=== PATIENT | male | born 1950 | race Caucasian/White ===

== ENCOUNTER 2022-06-20 16:07 | Emergency (ER) | payer OTHER ==
[~2022-06-20] VITALS: Ht 172.7 cm; Wt 99.8 kg
[~2022-06-20 16:07] MED LIST: ATOR40TA PO; Aspir 8181 MG PO; BUPR75 PO; CARV25 PO; CYCL10 PO; ERGO400 PO; FINA5 PO; GLIP10; JARDIANCE10 MG PO; LASIX20 M2 PO; LOSA25 PO; METF500; OMEP20ER; PRED20 PO; Primidone50 MG PO; TAMS.4ER PO; TRADJENTA5 MG PO; TRAM50 PO; XYZAL5 MG PO
[2022-06-20 17:26] LABS: BASOPHILS ABSOLUTE AUTO 0.04 K/mm3 (0.00-0.23); BASOPHILS PERCENT AUTO 1 % (0-2); EOSINOPHILS PERCENT AUTO 6 % (0-6); Hematocrit 42.7 % (37.0-53.0); Hemoglobin 14.3 g/dL (13.5-17.5); IMMATURE GRAN ABSOLUTE AUTO 0.01 K/mm3 (0.00-0.10); IMMATURE GRAN PERCENT AUTO 0 % (0-1); LYMPHOCYTES ABSOLUTE AUTO 1.55 K/mm3 (0.84-5.20); LYMPHOCYTES PERCENT AUTO 22 % (21-46); MONOCYTES ABSOLUTE AUTO 0.69 K/mm3 (0.16-1.47); MONOCYTES PERCENT AUTO 10 % (4-13); Mean Corpuscular HGB 27.8 pg (26.0-34.0); Mean Corpuscular HGB Conc 33.5 g/dL (31.5-36.5); Mean Corpuscular Volume 83 fL (80-100); Mean Platelet Volume 10.2 fL (9.1-12.4); NEUTROPHILS ABSOLUTE AUTO 4.31 K/mm3 (1.96-9.15); NEUTROPHILS PERCENT AUTO 62 % (41-73); Platelet Count 226 K/mm3 (150-400); RDW Coefficient Variation 13.8 % (11.7-14.2); Red Blood Cell Count 5.14 M/mm3 (4.30-5.90)
[2022-06-20 17:52] LABS: Albumin, Blood 3.6 g/dL (3.4-5.0); Albumin/Globulin Ratio 1.1 (0.8-1.8); Bilirubin, Total 0.4 mg/dL (0.1-1.0); Bun/Creatinine Ratio 23.4 (12.0-20.0); Calcium, Blood 9.3 mg/dL (8.5-10.1); Creatinine, Blood 1.07 mg/dL (0.60-1.20); Globulin, Blood 3.4 g/dL (2.2-4.0); Potassium, Blood 5.3 mmol/L (3.5-5.5)
[2022-06-20] MEDS ORDERED: FURO20 PO (20:00)
[2022-06-20] MEDS ORDERED: BACLOFEN5 M1 PO (20:01)
[2022-06-20] MEDS ORDERED: TRADJENTA5 MG PO (20:02)
[2022-06-20] MEDS ORDERED: PIOG15 PO (20:02)
[2022-06-20] MEDS ORDERED: MONT10T PO (20:02)
[2022-06-20] MEDS ORDERED: INSULANI (20:03)
== END 2022-06-21 00:17 | disposition home or self-care (01) ==
LOC: ER 16:07
PROVIDERS: Physician Assistant
DX: J44.1 Chronic obstructive pulmonary disease with (acute) exacerbation (principal); I50.9 Heart failure, unspecified; Z88.0 Allergy status to penicillin; Z79.899 Other long term (current) drug therapy
CPT/HCPCS: 36415; 71046; 80053; 82947; 83880; 84484; 85025; 93005; 93010; 94640; 94664; 96374; 99284-25; J1815; J1940; J7512

== ENCOUNTER 2022-09-20 06:37 | Emergency (ER) | payer OTHER ==
[~2022-09-20] VITALS: Ht 172.7 cm; Wt 99.8 kg
[~2022-09-20 06:37] MED LIST changes: +BACLOFEN5 M1 PO; +FURO20 PO; +INSULANI; +MONT10T PO; +PIOG15 PO
[2022-09-20 07:23] LABS: BASOPHILS ABSOLUTE AUTO 0.05 K/mm3 (0.00-0.23); BASOPHILS PERCENT AUTO 1 % (0-2); EOSINOPHILS ABSOLUTE AUTO 0.42 K/mm3 (0.00-0.68); EOSINOPHILS PERCENT AUTO 5 % (0-6); Hematocrit 39.3 % (37.0-53.0); Hemoglobin 13.1 g/dL (13.5-17.5); IMMATURE GRAN ABSOLUTE AUTO 0.03 K/mm3 (0.00-0.10); IMMATURE GRAN PERCENT AUTO 0 % (0-1); LYMPHOCYTES ABSOLUTE AUTO 1.21 K/mm3 (0.84-5.20); LYMPHOCYTES PERCENT AUTO 14 % (21-46); MONOCYTES ABSOLUTE AUTO 0.82 K/mm3 (0.16-1.47); MONOCYTES PERCENT AUTO 9 % (4-13); Mean Corpuscular HGB 27.3 pg (26.0-34.0); Mean Corpuscular HGB Conc 33.3 g/dL (31.5-36.5); Mean Corpuscular Volume 82 fL (80-100); Mean Platelet Volume 11.1 fL (9.1-12.4); NEUTROPHILS ABSOLUTE AUTO 6.29 K/mm3 (1.96-9.15); NEUTROPHILS PERCENT AUTO 71 % (41-73); Platelet Count 211 K/mm3 (150-400); RDW Coefficient Variation 13.7 % (11.7-14.2); RDW Standard Deviation 40.8 fL (35.1-46.3); Red Blood Cell Count 4.79 M/mm3 (4.30-5.90); White Blood Cell Count 8.82 K/mm3 (4.00-11.30)
[2022-09-20 08:10] LABS: Albumin, Blood 3.3 g/dL (3.4-5.0); Albumin/Globulin Ratio 0.9 (0.8-1.8); Bilirubin, Total 0.9 mg/dL (0.1-1.0); Bun/Creatinine Ratio 22.4 (12.0-20.0); Creatinine, Blood 1.25 mg/dL (0.60-1.20); Globulin, Blood 3.7 g/dL (2.2-4.0); Potassium, Blood 3.9 mmol/L (3.5-5.5)
[2022-09-20] MEDS ORDERED: AZIT250 PO (10:37)
[2022-09-20] MEDS ORDERED: ALBU90OI INH (10:37)
[2022-09-20] MEDS ORDERED: PRED20 PO (10:37)
== END 2022-09-20 10:48 | disposition home or self-care (01) ==
LOC: ER 06:37
PROVIDERS: Student in an Organized Health Care Education/Training Program
DX: J44.1 Chronic obstructive pulmonary disease with (acute) exacerbation (principal); I50.9 Heart failure, unspecified; E11.9 Type 2 diabetes mellitus without complications; Z88.0 Allergy status to penicillin; Z79.899 Other long term (current) drug therapy; Z79.82 Long term (current) use of aspirin; Z79.84 Long term (current) use of oral hypoglycemic drugs; Z87.891 Personal history of nicotine dependence
CPT/HCPCS: 36415; 71046; 80053; 83735; 83880; 84484; 85025; 93005; 93010; 94640; 94664; A9270; J1940

== ENCOUNTER 2023-02-20 05:35 | Day surgery (SDC) | payer OTHER ==
[~2023-02-20] VITALS: Ht 172.7 cm; Wt 97.0 kg
[2023-02-20] VITALS (11 sets, daily range): BP systolic 127–145; BP diastolic 65–83
[~2023-02-20 05:35] MED LIST changes: +ALBU90OI INH; +AZIT250 PO; +BUME2 PO; +LEVE500 PO; +METF500C PO; -OMEP20ER; +OMEP20ER PO; +OZEMPIC0.25 MG/0. SQ; +TIOT18 INH
[2023-02-20] MEDS ORDERED: NOVOLOG FL100 UNIT/3 SQ (07:08)
[2023-02-20 07:13] LABS: BASOPHILS ABSOLUTE AUTO 0.03 K/mm3 (0.00-0.23); BASOPHILS PERCENT AUTO 0 % (0-2); EOSINOPHILS ABSOLUTE AUTO 0.54 K/mm3 (0.00-0.68); EOSINOPHILS PERCENT AUTO 7 % (0-6); Hematocrit 36.2 % (37.0-53.0); Hemoglobin 11.9 g/dL (13.5-17.5); IMMATURE GRAN ABSOLUTE AUTO 0.02 K/mm3 (0.00-0.10); IMMATURE GRAN PERCENT AUTO 0 % (0-1); LYMPHOCYTES ABSOLUTE AUTO 1.12 K/mm3 (0.84-5.20); LYMPHOCYTES PERCENT AUTO 15 % (21-46); MONOCYTES ABSOLUTE AUTO 0.69 K/mm3 (0.16-1.47); MONOCYTES PERCENT AUTO 9 % (4-13); Mean Corpuscular HGB 26.5 pg (26.0-34.0); Mean Corpuscular HGB Conc 32.9 g/dL (31.5-36.5); Mean Corpuscular Volume 81 fL (80-100); Mean Platelet Volume 10.1 fL (9.1-12.4); NEUTROPHILS ABSOLUTE AUTO 5.18 K/mm3 (1.96-9.15); NEUTROPHILS PERCENT AUTO 68 % (41-73); Platelet Count 239 K/mm3 (150-400); RDW Coefficient Variation 15.5 % (11.7-14.2); RDW Standard Deviation 45.3 fL (35.1-46.3); Red Blood Cell Count 4.49 M/mm3 (4.30-5.90); White Blood Cell Count 7.58 K/mm3 (4.00-11.30)
[2023-02-20 07:29] LABS: International Normalized Ratio 1.02; Prothrombin Time Results 10.7 Sec (9.7-11.5)
[2023-02-20 07:35] LABS: Bun/Creatinine Ratio 23.6 (12.0-20.0); Calcium, Blood 9.5 mg/dL (8.5-10.1); Creatinine, Blood 1.4 mg/dL (0.60-1.20); Potassium, Blood 3.1 mmol/L (3.5-5.5)
--- NOTE | 2023-02-20 10:13 | NUR ---
PT RETURNED TO RECOVERY ROOM IN BED. RIGHT RADIAL TR BAND SITE SOFT NON-TENDER WITH NO HEMATOMA, NO PULSATILE BLEEDING AND WRIST BOARD IN PLACE. RIGHT AC VENOUS SITE SOFT NON-TENDER WITH NO HEMATOMA AND SLIGHT TRACK OOZING NOTED AND CLEAR DRESSING IN PLACE WITH FORREST PATCH. PT DENIES CHEST PAIN CALL LIGHT REACH.
--- NOTE | 2023-02-20 11:08 | NUR ---
PT VOIDED. PT SITTING ON THE SIDE OF THE BED EATING BREAKFAST. NO CHANGES TO RAD OR R AC SITES. CALL LIGHT IN REACH.
--- NOTE | 2023-02-20 11:42 | NUR ---
10 CC OF AIR REMOVED OUT OF NOW DEFLATED RIGHT RADIAL TR BAND OVER 10 MIN. RIGHT RADIAL SITE SOFT NON-TENDER WITH NO HEMATOMA, NO PULSATILE BLEEDING. DISCHARGE INSTRUCTIONS REVIEWED WITH PT AND HIS , PHOEBE ALL QUESTIONS ANSWERED. CALL LIGHT IN REACH.
--- NOTE | 2023-02-20 12:49 | NUR ---
NO CHANGES TO DEFLATED RIGHT TR BAND SITE.NO CHANGES TO RIGHT AC SITE. DEFLATED R TR BAND REMOVED AND POLYMEM PLACED OVER SITE WITH RIGHT WRIST BOARD IN PLACE. 20 G IV DISCONTINUED FROM LEFT AC WITH INTACT CANNULA. PT ESCORTED OUT VIA WHEELCHAIR ESCORT.
== END 2023-02-20 12:50 | disposition home or self-care (01) ==
LOC: MHTC 05:35
PROVIDERS: Internal Medicine Cardiovascular Disease
DX: I42.8 Other cardiomyopathies (principal); I13.0 Hypertensive heart and chronic kidney disease with heart failure and stage 1 through stage 4 chronic kidney disease, or unspecified chronic kidney disease; E11.22 Type 2 diabetes mellitus with diabetic chronic kidney disease; N18.6 End stage renal disease; I50.20 Unspecified systolic (congestive) heart failure; I25.10 Atherosclerotic heart disease of native coronary artery without angina pectoris; E78.5 Hyperlipidemia, unspecified; J44.9 Chronic obstructive pulmonary disease, unspecified; E66.01 Morbid (severe) obesity due to excess calories; Z68.32 Body mass index [BMI] 32.0-32.9, adult; Z87.891 Personal history of nicotine dependence; Z88.0 Allergy status to penicillin; Z79.82 Long term (current) use of aspirin; Z79.4 Long term (current) use of insulin; Z79.899 Other long term (current) drug therapy
CPT/HCPCS: 76937; 80048; 82947; 85025; 85610; 93460; 99152; 99153; A9270; C1769; C1887; C1894; J1644; J2250; J3010; J7030; J7042; J7050; Q9967

== ENCOUNTER 2023-06-12 00:07 | Inpatient (IN) | payer OTHER ==
[~2023-06-12] VITALS: Ht 172.7 cm; Wt 89.9 kg
[2023-06-12] VITALS (8 sets, daily range): BP systolic 89–120; BP diastolic 50–72
[~2023-06-12 00:07] MED LIST changes: -INSULANI; +INSULANI SC; +NOVOLOG FL100 UNIT/3 SQ
[2023-06-12 01:05] LABS: BASOPHILS ABSOLUTE AUTO 0.05 K/mm3 (0.00-0.23); BASOPHILS PERCENT AUTO 0 % (0-2); EOSINOPHILS ABSOLUTE AUTO 0.28 K/mm3 (0.00-0.68); EOSINOPHILS PERCENT AUTO 2 % (0-6); Hematocrit 36.2 % (37.0-53.0); IMMATURE GRAN ABSOLUTE AUTO 0.04 K/mm3 (0.00-0.10); IMMATURE GRAN PERCENT AUTO 0 % (0-1); LYMPHOCYTES ABSOLUTE AUTO 1.43 K/mm3 (0.84-5.20); LYMPHOCYTES PERCENT AUTO 11 % (21-46); MONOCYTES ABSOLUTE AUTO 1.52 K/mm3 (0.16-1.47); MONOCYTES PERCENT AUTO 12 % (4-13); Mean Corpuscular HGB 27.3 pg (26.0-34.0); Mean Corpuscular HGB Conc 33.1 g/dL (31.5-36.5); Mean Corpuscular Volume 83 fL (80-100); Mean Platelet Volume 11.6 fL (9.1-12.4); NEUTROPHILS ABSOLUTE AUTO 9.31 K/mm3 (1.96-9.15); NEUTROPHILS PERCENT AUTO 74 % (41-73); Platelet Count 197 K/mm3 (150-400); RDW Coefficient Variation 16.1 % (11.7-14.2); RDW Standard Deviation 48.6 fL (35.1-46.3); Red Blood Cell Count 4.39 M/mm3 (4.30-5.90); White Blood Cell Count 12.63 K/mm3 (4.00-11.30)
[2023-06-12 01:18] LABS: Albumin, Blood 3.1 g/dL (3.4-5.0); Albumin/Globulin Ratio 0.9 (0.8-1.8); Bilirubin, Total 0.9 mg/dL (0.1-1.0); Bun/Creatinine Ratio 12.9 (12.0-20.0); Calcium, Blood 8.8 mg/dL (8.5-10.1); Creatinine, Blood 3.03 mg/dL (0.60-1.20); Globulin, Blood 3.6 g/dL (2.2-4.0); Potassium, Blood 4.3 mmol/L (3.5-5.5); Total Protein, Blood 6.7 g/dL (6.4-8.2)
[2023-06-12 01:56] LABS: Magnesium, Blood 1.2 mg/dL (1.6-2.4)
[2023-06-12 02:11] LABS: Thyroid Stimulating Hormone 0.267 uIU/mL (0.360-4.800)
[2023-06-12 05:19] LABS: Influenza A, PCR NEGATIVE (NEGATIVE); Influenza B, PCR NEGATIVE (NEGATIVE); Resp Syncytial Virus, PCR NEGATIVE (NEGATIVE); SARS-Cov-2 (COVID-19) PCR, MMC NEGATIVE (NEGATIVE)
[2023-06-12 06:19] LABS: BASOPHILS ABSOLUTE AUTO 0.04 K/mm3 (0.00-0.23); BASOPHILS PERCENT AUTO 1 % (0-2); EOSINOPHILS ABSOLUTE AUTO 0.22 K/mm3 (0.00-0.68); EOSINOPHILS PERCENT AUTO 3 % (0-6); IMMATURE GRAN ABSOLUTE AUTO 0.03 K/mm3 (0.00-0.10); IMMATURE GRAN PERCENT AUTO 0 % (0-1); LYMPHOCYTES ABSOLUTE AUTO 1.39 K/mm3 (0.84-5.20); LYMPHOCYTES PERCENT AUTO 16 % (21-46); MONOCYTES ABSOLUTE AUTO 1.01 K/mm3 (0.16-1.47); MONOCYTES PERCENT AUTO 11 % (4-13); Mean Corpuscular HGB Conc 32.4 g/dL (31.5-36.5); Mean Corpuscular Volume 83 fL (80-100); Mean Platelet Volume 10.8 fL (9.1-12.4); NEUTROPHILS ABSOLUTE AUTO 6.16 K/mm3 (1.96-9.15); NEUTROPHILS PERCENT AUTO 70 % (41-73); Platelet Count 151 K/mm3 (150-400); RDW Coefficient Variation 16.1 % (11.7-14.2); RDW Standard Deviation 49.1 fL (35.1-46.3); Red Blood Cell Count 4.45 M/mm3 (4.30-5.90); White Blood Cell Count 8.85 K/mm3 (4.00-11.30)
--- NOTE | 2023-06-12 06:25 | NUR ---
SHIFT SUMMARY / ARRIVAL TO PCU8 PT ARRIVED TO PCU8 AT APPROXIMATELY 0530. PT TRANSFERED FROM [facility] TO HOSPITAL BED WITH 1 ASSIST FWW. PT TRIED TO USE URINAL AT [facility], WAS UNABLE TO VOID. BLADDER SCAN SHOWED APPROXIMATELY 140mLs. PT A&Ox4, CALLS AND COMMUNICATES NEEDS APPROPRIATELY. BP SOFT WITH SBP 90's, MAP>/= 65, ASYMPTOMATIC. SINUS 80's, DENIES CP/PRESSURE. SpO2> 92% RA WHILE AWAKE, 2L VIA NC WHILE ASLEEP, DENIES SOB. AT BEDSIDE. NO OTHER EVENTS, WILL REPORT TO ONCOMING RN.
[2023-06-12 06:42] LABS: Albumin, Blood 2.9 g/dL (3.4-5.0); Albumin/Globulin Ratio 0.8 (0.8-1.8); Bilirubin, Total 0.8 mg/dL (0.1-1.0); Bun/Creatinine Ratio 15.2 (12.0-20.0); Calcium, Blood 8.2 mg/dL (8.5-10.1); Creatinine, Blood 2.37 mg/dL (0.60-1.20); Globulin, Blood 3.5 g/dL (2.2-4.0); Magnesium, Blood 2.1 mg/dL (1.6-2.4); Potassium, Blood 3.9 mmol/L (3.5-5.5); Total Protein, Blood 6.4 g/dL (6.4-8.2)
--- NOTE | 2023-06-12 08:15 | NUR ---
AM ASSESSMENT: Pt resting in bed with at bedside. Wakes to verbal stimulus. HR reg, BT positive. PUlses plap. LS clear. Pt up to bathroom to attempt to void after renal Ultrasound showed a full bladder. Post void Bladder scan showed >750. Will inform physician and straight cath patient. Pt denies pain at this time. Call light in reach. Denies other needs. Will continue to monitor.
[2023-06-12] MEDS ORDERED: BASAGLAR K100 UNIT/6 SC (08:45)
[2023-06-12 10:27] LABS: Source, Urine Clean Catch
[2023-06-12 10:37] LABS: Bilirubin, Urine Neg (Neg); Blood, Urine Neg (Neg); Glucose Qualitative, Urine 4+ (Neg); Ketones, Urine Neg (Neg); Leukocyte Esterase, Urine Neg (Neg); Nitrite, Urine Neg (Neg); Protein, Urine Neg (Neg); Specific Gravity, Urine 1.015 (1.003-1.022); Urobilinogen, Urine NORM (Normal)
[2023-06-12 10:40] LABS: Appearance, Urine Clear (Clear); Color, Urine Yellow (P-Yellow)
[2023-06-12 16:42] LABS: Prostate Specific Antigen 0.633 ng/mL (0.000-4.000)
[2023-06-12 17:03] LABS: Source, Urine Foley catheter
[2023-06-12 17:17] LABS: Appearance, Urine Clear (Clear); Bilirubin, Urine Neg (Neg); Blood, Urine 4+ (Neg); Glucose Qualitative, Urine 4+ (Neg); Ketones, Urine Neg (Neg); Leukocyte Esterase, Urine 1+ (Neg); Nitrite, Urine Neg (Neg); Protein, Urine Neg (Neg); Specific Gravity, Urine 1.015 (1.003-1.022); Urobilinogen, Urine NORM (Normal)
[2023-06-12 17:24] LABS: Color, Urine Pale Yellow (P-Yellow)
[2023-06-12 17:25] LABS: Bacteria Rare /hpf; Hyaline Casts 0-2 /lpf (0-2); Squamous Epithelial Cells Not Seen /hpf (Few)
--- NOTE | 2023-06-12 17:28 | NUR ---
Shift Summary: Pt has been dozing on and off throughout the shift. Straight cath was done this AM for Retention >750. After this Pt attempted to void every 2-3 hours (with some success), but pt still having urinary retention. Per order hyde cath was placed and patient was give education regarding hyde and plan to discharge with hyde. Pt denies any questions at this time. Other VSS this shift. No other changes this shift. Will report to night RN.
[2023-06-13 04:26] VITALS: BP 122/67
--- NOTE | 2023-06-13 05:23 | NUR ---
shift summary NO ACUTE CHANGES. AXO4, SLEEPING HEAVILY AT TIMES. IN SR. BP STABLE. ON RA. ROSEN PATENT AND DRAINING TO GRAVITY. PT ACCIDENTALLY PULLED IV IN SLEEP, REPLACED, 20G AC IV TO ACCOMMODATE FOR POSSIBLE FUTUTE CT WITH CONTRAST. OTHERWISE, PT RESTING QUIETELY. USES CALL LIGHT APPROPRIATELY.
[2023-06-13 05:26] LABS: BASOPHILS ABSOLUTE AUTO 0.03 K/mm3 (0.00-0.23); BASOPHILS PERCENT AUTO 0 % (0-2); EOSINOPHILS ABSOLUTE AUTO 0.25 K/mm3 (0.00-0.68); EOSINOPHILS PERCENT AUTO 3 % (0-6); Hemoglobin 11.7 g/dL (13.5-17.5); IMMATURE GRAN ABSOLUTE AUTO 0.02 K/mm3 (0.00-0.10); IMMATURE GRAN PERCENT AUTO 0 % (0-1); LYMPHOCYTES ABSOLUTE AUTO 1.07 K/mm3 (0.84-5.20); LYMPHOCYTES PERCENT AUTO 14 % (21-46); MONOCYTES ABSOLUTE AUTO 0.76 K/mm3 (0.16-1.47); MONOCYTES PERCENT AUTO 10 % (4-13); Mean Corpuscular HGB 27.3 pg (26.0-34.0); Mean Corpuscular HGB Conc 33.4 g/dL (31.5-36.5); Mean Corpuscular Volume 82 fL (80-100); NEUTROPHILS PERCENT AUTO 71 % (41-73); Platelet Count 184 K/mm3 (150-400); RDW Standard Deviation 47.8 fL (35.1-46.3); Red Blood Cell Count 4.28 M/mm3 (4.30-5.90); White Blood Cell Count 7.43 K/mm3 (4.00-11.30)
[2023-06-13 05:47] LABS: Albumin, Blood 2.8 g/dL (3.4-5.0); Albumin/Globulin Ratio 0.8 (0.8-1.8); Bilirubin, Total 0.8 mg/dL (0.1-1.0); Bun/Creatinine Ratio 24.8 (12.0-20.0); Calcium, Blood 8.7 mg/dL (8.5-10.1); Creatinine, Blood 1.17 mg/dL (0.60-1.20); Globulin, Blood 3.7 g/dL (2.2-4.0); Magnesium, Blood 1.6 mg/dL (1.6-2.4); Phosphorus, Blood 2.5 mg/dL (2.5-4.9); Potassium, Blood 4.2 mmol/L (3.5-5.5); Total Protein, Blood 6.5 g/dL (6.4-8.2)
[2023-06-13 07:52] VITALS: BP 134/74
[2023-06-13] MEDS ORDERED: BUPRENORPHIN-N1 EAC1 (10:11)
[2023-06-13 11:57] VITALS: BP 100/76
[2023-06-13] MEDS ORDERED: Acetaminophen325 M1 PO (13:14)
--- NOTE | 2023-06-13 15:01 | NUR ---
DISCHARGE SUMMARY ALERT, ORIENTED, [facility] [place]. ROOM AIR. NSR IN 80S. TOLERATING ADA DIET AND LIQUIDS. ROSEN PATENT AND DRAINING CLEAR YELLOW URINE. CLEARED FOR DISCHARGE HOME BY PHYSICAL THERAPY. DISCHARGE WITH HOME HEALTH ORDER PLACED BY DR GONZALEZ. KIDNEY FUNCTIONING IMPROVED. CATH CARE PROVIDED AND EDUCATION ON HOW TO MANAGE CATHETER. DISCHARGE EDUCATION GIVEN ON CATH CARE AND FOLLOW UP WITH PCP, UROLOGY, AND HOME HEALTH. IV DC'D WNL. PATIENT LEFT UNIT AT 1455 VIA WHEELCHAIR FOR TAXI RIDE HOME.
== END 2023-06-13 15:01 | disposition home or self-care (01) | DRG 682 ==
LOC: ER 00:07 → ERHOLD 04:24 → PCU 04:27 → ERHOLD 04:27 → PCU 05:23
PROVIDERS: Family Medicine; Student in an Organized Health Care Education/Training Program; ADMIT Student in an Organized Health Care Education/Training Program
DX: N17.9 Acute kidney failure, unspecified (principal); J96.01 Acute respiratory failure with hypoxia; I50.42 Chronic combined systolic (congestive) and diastolic (congestive) heart failure; J44.9 Chronic obstructive pulmonary disease, unspecified; R62.7 Adult failure to thrive; E78.5 Hyperlipidemia, unspecified; E11.22 Type 2 diabetes mellitus with diabetic chronic kidney disease; E66.9 Obesity, unspecified; K21.9 Gastro-esophageal reflux disease without esophagitis; N32.0 Bladder-neck obstruction; I95.9 Hypotension, unspecified; R33.9 Retention of urine, unspecified; E11.42 Type 2 diabetes mellitus with diabetic polyneuropathy; E86.1 Hypovolemia; E83.42 Hypomagnesemia; N18.31 Chronic kidney disease, stage 3a; E11.319 Type 2 diabetes mellitus with unspecified diabetic retinopathy without macular edema; G89.29 Other chronic pain; Z20.822 Contact with and (suspected) exposure to COVID-19; Z68.28 Body mass index [BMI] 28.0-28.9, adult; Z88.0 Allergy status to penicillin; Z79.899 Other long term (current) drug therapy; Z79.82 Long term (current) use of aspirin; Z79.891 Long term (current) use of opiate analgesic; Z79.4 Long term (current) use of insulin; Z79.84 Long term (current) use of oral hypoglycemic drugs; Z79.51 Long term (current) use of inhaled steroids; Z87.891 Personal history of nicotine dependence
CPT/HCPCS: 0241U; 36415; 51702; 71045; 76770; 80053; 81001; 81003; 82570; 82947; 83036; 83735; 83880; 84100; 84300; 84439; 84443; 84484; 85025; 87086; 93005; 93010; 94640; 94664; 94762; 96361; 96365; 96366; 97116; 97161; 99285-25; A9270; G0103; J1644; J1815; J3475; J7030; J7120

== ENCOUNTER 2023-07-23 04:29 | Emergency (ER) | payer OTHER ==
[~2023-07-23] VITALS: Ht 172.7 cm; Wt 84.4 kg
[~2023-07-23 04:29] MED LIST changes: +Acetaminophen325 M1 PO; +BASAGLAR K100 UNIT/6 SC; +BUPRENORPHIN-N1 EAC1
[2023-07-23 05:23] LABS: BASOPHILS ABSOLUTE AUTO 0.02 K/mm3 (0.00-0.23); BASOPHILS PERCENT AUTO 0 % (0-2); EOSINOPHILS ABSOLUTE AUTO 0.07 K/mm3 (0.00-0.68); EOSINOPHILS PERCENT AUTO 1 % (0-6); Hematocrit 34.1 % (37.0-53.0); Hemoglobin 11.6 g/dL (13.5-17.5); IMMATURE GRAN ABSOLUTE AUTO 0.07 K/mm3 (0.00-0.10); IMMATURE GRAN PERCENT AUTO 1 % (0-1); LYMPHOCYTES ABSOLUTE AUTO 1.17 K/mm3 (0.84-5.20); LYMPHOCYTES PERCENT AUTO 10 % (21-46); MONOCYTES ABSOLUTE AUTO 0.92 K/mm3 (0.16-1.47); MONOCYTES PERCENT AUTO 8 % (4-13); Mean Corpuscular Volume 80 fL (80-100); Mean Platelet Volume 10.1 fL (9.1-12.4); NEUTROPHILS ABSOLUTE AUTO 10.07 K/mm3 (1.96-9.15); NEUTROPHILS PERCENT AUTO 82 % (41-73); Platelet Count 317 K/mm3 (150-400); RDW Coefficient Variation 14.8 % (11.7-14.2); RDW Standard Deviation 43.2 fL (35.1-46.3); Red Blood Cell Count 4.29 M/mm3 (4.30-5.90); White Blood Cell Count 12.32 K/mm3 (4.00-11.30)
[2023-07-23 06:00] LABS: Albumin, Blood 2.7 g/dL (3.4-5.0); Albumin/Globulin Ratio 0.6 (0.8-1.8); Bilirubin, Total 0.8 mg/dL (0.1-1.0); Bun/Creatinine Ratio 16.9 (12.0-20.0); Calcium, Blood 8.8 mg/dL (8.5-10.1); Creatinine, Blood 0.77 mg/dL (0.60-1.20); Globulin, Blood 4.3 g/dL (2.2-4.0); Potassium, Blood 3.6 mmol/L (3.5-5.5)
[2023-07-23 06:20] LABS: Source, Urine Clean Catch
[2023-07-23 06:32] LABS: Appearance, Urine Hazy (Clear); Bilirubin, Urine Neg (Neg); Blood, Urine 2+ (Neg); Color, Urine Yellow (P-Yellow); Glucose Qualitative, Urine 4+ (Neg); Ketones, Urine 3+ (Neg); Leukocyte Esterase, Urine 2+ (Neg); Nitrite, Urine Neg (Neg); Protein, Urine 3+ (Neg); Urobilinogen, Urine NORM (Normal); pH, Urine 6.5 (5.0-8.0)
[2023-07-23 06:52] LABS: Bacteria Few /hpf; Red Blood Cells, Urine 0-2 /hpf (0-2); Squamous Epithelial Cells Not Seen /hpf (Few)
[2023-07-23] MEDS ORDERED: LEVFLO500 PO (07:39)
[2023-07-23] MEDS ORDERED: DOC250 PO (08:00)
[2023-07-23 08:13] VITALS: BP 142/87
== END 2023-07-23 08:17 | disposition home or self-care (01) ==
LOC: ER 04:29
PROVIDERS: Emergency Medicine
DX: N39.0 Urinary tract infection, site not specified (principal); E86.0 Dehydration; Z88.0 Allergy status to penicillin; Z79.899 Other long term (current) drug therapy; Z79.82 Long term (current) use of aspirin; Z79.84 Long term (current) use of oral hypoglycemic drugs; Z79.4 Long term (current) use of insulin; E11.40 Type 2 diabetes mellitus with diabetic neuropathy, unspecified; I50.9 Heart failure, unspecified; Z87.891 Personal history of nicotine dependence
CPT/HCPCS: 74177; 80053; 81001; 85025; 87086; 96361; 96365-59; 99284-25; J0696; J7030; Q9967

== ENCOUNTER 2024-02-13 21:51 | Emergency (ER) | payer OTHER ==
[~2024-02-13] VITALS: Ht 172.7 cm; Wt 79.4 kg
[~2024-02-13 21:51] MED LIST changes: +DOC250 PO; +LEVFLO500 PO
[2024-02-13 22:30] VITALS: BP 121/66
[2024-02-13] MEDS ORDERED: ENTRESTO 24 MG1 EAC2 (23:18)
[2024-02-13] MEDS ORDERED: MONT5TCH (23:18)
[2024-02-13] MEDS ORDERED: Cyclobenzaprine5 MG (23:19)
[2024-02-13] MEDS ORDERED: Vitamin B-12100 MCG (23:19)
== END 2024-02-14 01:22 | disposition home or self-care (01) ==
LOC: ER 21:51
DX: M50.10 Cervical disc disorder with radiculopathy, unspecified cervical region (principal); Z88.0 Allergy status to penicillin; Z79.899 Other long term (current) drug therapy; Z79.82 Long term (current) use of aspirin; Z79.4 Long term (current) use of insulin; E11.9 Type 2 diabetes mellitus without complications; I11.0 Hypertensive heart disease with heart failure; I50.9 Heart failure, unspecified; K21.9 Gastro-esophageal reflux disease without esophagitis; Z87.891 Personal history of nicotine dependence
CPT/HCPCS: 72125; 99284-25

== ENCOUNTER → 2024-05-12 | Outpatient (CLI) | payer MEDICARE, OTHER ==
[~2024-05-12] MED LIST changes: +Cyclobenzaprine5 MG; +ENTRESTO 24 MG1 EAC2; +MONT5TCH; +Vitamin B-12100 MCG
[2024-05-12 16:41] LABS: U Amphetamine Screen Not Detected; U Barbituate Screen DETECTED; U Benzodiazapine Screen Not Detected; U Buprenorphine Screen Not Detected; U Cannabinoids Screen DETECTED; U Cocaine Screen Not Detected; U Methadone Screen Not Detected; U Methamphetamine Screen Not Detected; U Opiates Screen Not Detected; U Oxycodone Screen DETECTED; U Phencyclidine Screen Not Detected
[2024-05-15 07:35] LABS: 11-NOR-9-CARBOXY-THC,URN,QUANT 302 ng/mL
[2024-05-16 13:38] LABS: 6-ACETYLMORPHINE, URN, QUANT <10 ng/mL; CODEINE, URN, QUANT <20 ng/mL; HYDROCODONE, URN, QUANT <20 ng/mL; HYDROMORPHONE, URN, QUANT <20 ng/mL; MORPHINE, URN, QUANT <20 ng/mL; NORHYDROCODONE, URN, QUANT <20 ng/mL; NOROXYCODONE, URN, QUANT 415 ng/mL; NOROXYMORPHONE, URN, QUANT 140 ng/mL; OXYCODONE, URN, QUANT 646 ng/mL; OXYMORPHONE, URN, QUANT <20 ng/mL
== END | disposition home or self-care (01) ==
LOC: LAB SHORT 15:37 → LAB 15:37
PROVIDERS: Internal Medicine
DX: M43.06 Spondylolysis, lumbar region (principal); G89.4 Chronic pain syndrome; Z79.899 Other long term (current) drug therapy
CPT/HCPCS: G0480

== ENCOUNTER 2024-07-16 08:59 | Day surgery (SDC) | payer MEDICARE, OTHER ==
[~2024-07-16] VITALS: Ht 172.7 cm; Wt 91.7 kg
[2024-07-16] VITALS (12 sets, daily range): BP systolic 120–150; BP diastolic 75–97
[~2024-07-16 08:59] MED LIST changes: +BUPRENORPHN-NA1 EACH SL; -Cyclobenzaprine5 MG; +Cyclobenzaprine5 MG PO; +FARXIGA10 MG PO; -MONT5TCH; +MONT5TCH PO; +WEGOVY0.25 MG/0. SC
[2024-07-16] MEDS ORDERED: CeFAZolin Sodium 2,000 MG in NS 100 ML IV SCH (09:15)
[2024-07-16] MEDS ORDERED: Lactated Ringer's 1,000 ML IV SCH (09:15)
--- NOTE | 2024-07-16 09:40 | NUR ---
PT TO SDS VIA WC. PT ABLE TO STAND FOR HEIGHT/WEIGHT, AMBULATES WITH CANE. History, Chart, Medications and Allergies reviewed before start of procedure. Lungs clear T/O to Auscultation. Patient confirms NPO status and agrees with scheduled surgery. Pre-Op teaching done. Pt verbalizes understanding. Patient States Post-Procedure ride home has been arranged. PT BELONGINGS PLACED UNDERNEATH GURNEY FOR SAFEKEEPING. PT CANE PLACED UNDERNEATH GURNEY FOR SAFEKEEPING.
[2024-07-16] MEDS ORDERED: EpiNEPhrine 1 MG/1 ML 1ML Vial ONE (09:50)
[2024-07-16] MEDS ORDERED: Bupivacaine 0.5% HCl 5 MG/ML 30MLVIAL ONE (09:51)
[2024-07-16] MEDS ORDERED: propofoL 20 ML IV ONE (10:16)
[2024-07-16] MEDS ORDERED: Lidocaine HCl 2% 20 ML MDV ONE (10:17)
[2024-07-16] MEDS ORDERED: FentaNYL Citrate 50 MCG/ML 2 ML Injection ONE ×2 (10:17→12:04)
--- NOTE | 2024-07-16 11:05 | NUR ---
07/16/24 1105 Kimberlyn Drummond BUPIVACAINE 0.5% MIXED WITH EPINEPHRINE BY TO CREATE A SOLUTION OF BUPIVACAINE 0.5% WITH EPINEPHRINE 1:200,000. SOLUTION WAS POURED ONTO THE STERILE FIELD. SMALL SKIN TEAR NOTED ON PATIENT'S RIGHT FOREARM PRIOR TO ENTRY INTO OR.
[2024-07-16] MEDS ORDERED: Ondansetron HCl 2 MG / ML 2ML Vial ONE (11:13)
[2024-07-16] MEDS ORDERED: TraMADol HCl 50 MG Tab PO PRN (12:15)
--- NOTE | 2024-07-16 12:22 | NUR ---
PT TO DAY SURGERY STEP DOWN FROM PACU; BEDSIDE REPORT RECEIVED. PT IS AWAKE, ALERT AND ORIENTED; ABLE TO MOVE SELF IN BED. VSS. AFEBRILE. PT HAS LAURA WRAP TO RIGHT ARM UP PAST ELBOW THAT IS C/D/I. PT IS ABLE TO WIGGLE FINGERS AND THEY ARE PINK AND WARM WITH CAP REFIL <3 SECONDS. PT DENIES PAIN AT THIS TIME. REQUESTING WATER.
--- NOTE | 2024-07-16 12:37 | NUR ---
PT TOLERATING PO FLUIDS AND CRACKERS WELL. LAURA WRAP REMAINS C/D/I AND PT ABLE TO WIGGLE FINGERS. PT DENIES PAIN.
--- NOTE | 2024-07-16 13:51 | NUR ---
PT DISCHARGED TO HOME AT 1320. PT A&OX4, BREATHING RA, NO COMPLAINTS OF PAIN OR NAUSEA. TOLERATID PO FLUIDSA ND FOODS. DRESSING REMAINS CDI AND ARM REMAINS IN SLING. Patient up to Ambulate independently. Gait steady.USES CANE. Discharge instructions reviewed with patient. Patient verbalizes understanding. Copy given to patient to take home. Dressing to procedure site clean, dry, intact with no visible drainage, swelling, erythema or bruising noted. Discharged via wheelchair to private car for ride home. ICE PACK IN PLACE. WITH PT.
== END 2024-07-16 13:20 | disposition home or self-care (01) ==
LOC: ORSCMMR 08:59
PROVIDERS: Orthopaedic Surgery
PROC: 01N54ZZ Release Median Nerve, Percutaneous Endoscopic Approach (ICD-10-PCS; principal; 2024-07-16 11:00)
PROC: 01N40ZZ Release Ulnar Nerve, Open Approach (ICD-10-PCS; principal; 2024-07-16 11:00)
DX: M72.0 Palmar fascial fibromatosis [Dupuytren] (principal); G56.01 Carpal tunnel syndrome, right upper limb; G56.21 Lesion of ulnar nerve, right upper limb; E11.22 Type 2 diabetes mellitus with diabetic chronic kidney disease; I12.9 Hypertensive chronic kidney disease with stage 1 through stage 4 chronic kidney disease, or unspecified chronic kidney disease; N18.9 Chronic kidney disease, unspecified; Z79.84 Long term (current) use of oral hypoglycemic drugs; Z79.4 Long term (current) use of insulin; E78.5 Hyperlipidemia, unspecified; N40.0 Benign prostatic hyperplasia without lower urinary tract symptoms; J45.909 Unspecified asthma, uncomplicated; Z87.891 Personal history of nicotine dependence; Z79.899 Other long term (current) drug therapy; I50.9 Heart failure, unspecified
CPT/HCPCS: 82947; J0171; J0690; J2405; J2704; J3010; J7120

== ENCOUNTER 2024-09-20 20:58 | Emergency (ER) | payer MEDICARE, OTHER ==
[~2024-09-20] VITALS: Ht 172.7 cm; Wt 81.7 kg
[2024-09-20 21:30] LABS: BASOPHILS ABSOLUTE AUTO 0.04 K/mm3 (0.00-0.23); BASOPHILS PERCENT AUTO 1 % (0-2); EOSINOPHILS ABSOLUTE AUTO 0.34 K/mm3 (0.00-0.68); EOSINOPHILS PERCENT AUTO 4 % (0-6); Hematocrit 36.7 % (37.0-53.0); Hemoglobin 12.3 g/dL (13.5-17.5); IMMATURE GRAN ABSOLUTE AUTO 0.03 K/mm3 (0.00-0.10); IMMATURE GRAN PERCENT AUTO 0 % (0-1); LYMPHOCYTES ABSOLUTE AUTO 1.67 K/mm3 (0.84-5.20); LYMPHOCYTES PERCENT AUTO 21 % (21-46); MONOCYTES ABSOLUTE AUTO 0.72 K/mm3 (0.16-1.47); MONOCYTES PERCENT AUTO 9 % (4-13); Mean Corpuscular HGB 28.5 pg (26.0-34.0); Mean Corpuscular HGB Conc 33.5 g/dL (31.5-36.5); Mean Corpuscular Volume 85 fL (80-100); Mean Platelet Volume 11.2 fL (9.1-12.4); NEUTROPHILS ABSOLUTE AUTO 5.21 K/mm3 (1.96-9.15); NEUTROPHILS PERCENT AUTO 65 % (41-73); Platelet Count 191 K/mm3 (150-400); RDW Coefficient Variation 13.2 % (11.7-14.2); RDW Standard Deviation 41.5 fL (35.1-46.3); Red Blood Cell Count 4.31 M/mm3 (4.30-5.90); White Blood Cell Count 8.01 K/mm3 (4.00-11.30)
[2024-09-20 21:48] LABS: Albumin, Blood 3.6 g/dL (3.4-5.0); Albumin/Globulin Ratio 1.1 (0.8-1.8); Bilirubin, Total 0.6 mg/dL (0.1-1.0); Bun/Creatinine Ratio 25.6 (12.0-20.0); Creatinine, Blood 0.9 mg/dL (0.60-1.20); Globulin, Blood 3.3 g/dL (2.2-4.0); Potassium, Blood 3.8 mmol/L (3.5-5.5); Total Protein, Blood 6.9 g/dL (6.4-8.2)
[2024-09-21] MEDS ORDERED: Bumetanide 0.25 MG/ML 10ML Vial IV ONE (00:05)
[2024-09-21 01:00] VITALS: BP 156/85
== END 2024-09-21 01:05 | disposition home or self-care (01) ==
LOC: ER 20:58
PROVIDERS: Emergency Medicine
DX: I11.0 Hypertensive heart disease with heart failure (principal); I50.9 Heart failure, unspecified; E11.40 Type 2 diabetes mellitus with diabetic neuropathy, unspecified; E78.5 Hyperlipidemia, unspecified; K21.9 Gastro-esophageal reflux disease without esophagitis; Z88.0 Allergy status to penicillin; Z79.82 Long term (current) use of aspirin; Z79.899 Other long term (current) drug therapy; Z79.84 Long term (current) use of oral hypoglycemic drugs; Z79.4 Long term (current) use of insulin; Z87.891 Personal history of nicotine dependence
CPT/HCPCS: 71046; 80053; 83880; 84484; 85025; 93005; 93010; 96374; 99285-25

== ENCOUNTER 2024-09-25 06:06 | Emergency (ER) | payer MEDICARE, OTHER ==
[~2024-09-25] VITALS: Ht 172.7 cm; Wt 90.7 kg
[2024-09-25] MEDS ORDERED: FentaNYL Citrate 50 MCG/ML 2 ML Injection IV ONE (06:40)
[2024-09-25 06:44] LABS: BASOPHILS ABSOLUTE AUTO 0.05 K/mm3 (0.00-0.23); BASOPHILS PERCENT AUTO 1 % (0-2); EOSINOPHILS ABSOLUTE AUTO 0.38 K/mm3 (0.00-0.68); EOSINOPHILS PERCENT AUTO 5 % (0-6); Hematocrit 35.8 % (37.0-53.0); Hemoglobin 12.1 g/dL (13.5-17.5); IMMATURE GRAN ABSOLUTE AUTO 0.02 K/mm3 (0.00-0.10); IMMATURE GRAN PERCENT AUTO 0 % (0-1); LYMPHOCYTES ABSOLUTE AUTO 1.77 K/mm3 (0.84-5.20); LYMPHOCYTES PERCENT AUTO 23 % (21-46); MONOCYTES ABSOLUTE AUTO 0.65 K/mm3 (0.16-1.47); MONOCYTES PERCENT AUTO 9 % (4-13); Mean Corpuscular HGB 28.7 pg (26.0-34.0); Mean Corpuscular HGB Conc 33.8 g/dL (31.5-36.5); Mean Corpuscular Volume 85 fL (80-100); Mean Platelet Volume 11.4 fL (9.1-12.4); NEUTROPHILS ABSOLUTE AUTO 4.81 K/mm3 (1.96-9.15); NEUTROPHILS PERCENT AUTO 63 % (41-73); Platelet Count 181 K/mm3 (150-400); RDW Coefficient Variation 13.2 % (11.7-14.2); RDW Standard Deviation 40.9 fL (35.1-46.3); Red Blood Cell Count 4.21 M/mm3 (4.30-5.90); White Blood Cell Count 7.68 K/mm3 (4.00-11.30)
[2024-09-25] MEDS ORDERED: Ondansetron HCl 2 MG / ML 2ML Vial IV ONE (06:45)
[2024-09-25 07:01] LABS: Albumin, Blood 3.4 g/dL (3.4-5.0); Albumin/Globulin Ratio 1.1 (0.8-1.8); Bilirubin, Total 0.5 mg/dL (0.1-1.0); Bun/Creatinine Ratio 20.9 (12.0-20.0); Calcium, Blood 8.9 mg/dL (8.5-10.1); Creatinine, Blood 0.91 mg/dL (0.60-1.20); Potassium, Blood 3.6 mmol/L (3.5-5.5); Total Protein, Blood 6.4 g/dL (6.4-8.2)
[2024-09-25 07:36] LABS: Influenza A, PCR NEGATIVE (NEGATIVE); Influenza B, PCR NEGATIVE (NEGATIVE); Resp Syncytial Virus, PCR NEGATIVE (NEGATIVE); SARS-Cov-2 (COVID-19) PCR, MMC NEGATIVE (NEGATIVE)
[2024-09-25] MEDS ORDERED: NAPR500 PO (10:03)
[2024-09-25 10:21] VITALS: BP 168/98
== END 2024-09-25 10:22 | disposition home or self-care (01) ==
LOC: ER 06:06
PROVIDERS: Emergency Medicine
DX: R07.2 Precordial pain (principal); I11.0 Hypertensive heart disease with heart failure; I50.40 Unspecified combined systolic (congestive) and diastolic (congestive) heart failure; E78.5 Hyperlipidemia, unspecified; E11.40 Type 2 diabetes mellitus with diabetic neuropathy, unspecified; K21.9 Gastro-esophageal reflux disease without esophagitis; J44.9 Chronic obstructive pulmonary disease, unspecified; Z87.891 Personal history of nicotine dependence; Z79.4 Long term (current) use of insulin; Z79.84 Long term (current) use of oral hypoglycemic drugs; Z79.82 Long term (current) use of aspirin; Z79.899 Other long term (current) drug therapy; Z88.0 Allergy status to penicillin
CPT/HCPCS: 0241U; 71045; 80053; 83880; 84484; 85025; 93005; 93010; 96374; 99285-25; J2405; J3010

== ENCOUNTER → 2024-10-09 | Outpatient (CLI) | payer MEDICARE, OTHER ==
[~2024-10-09] MED LIST changes: +NAPR500 PO
[2024-10-09 11:32] LABS: BASOPHILS ABSOLUTE AUTO 0.04 K/mm3 (0.00-0.23); BASOPHILS PERCENT AUTO 0 % (0-2); EOSINOPHILS ABSOLUTE AUTO 0.32 K/mm3 (0.00-0.68); EOSINOPHILS PERCENT AUTO 3 % (0-6); Hematocrit 38.5 % (37.0-53.0); Hemoglobin 12.6 g/dL (13.5-17.5); IMMATURE GRAN ABSOLUTE AUTO 0.03 K/mm3 (0.00-0.10); IMMATURE GRAN PERCENT AUTO 0 % (0-1); LYMPHOCYTES ABSOLUTE AUTO 1.45 K/mm3 (0.84-5.20); LYMPHOCYTES PERCENT AUTO 16 % (21-46); MONOCYTES ABSOLUTE AUTO 0.56 K/mm3 (0.16-1.47); MONOCYTES PERCENT AUTO 6 % (4-13); Mean Corpuscular HGB 28.1 pg (26.0-34.0); Mean Corpuscular HGB Conc 32.7 g/dL (31.5-36.5); Mean Corpuscular Volume 86 fL (80-100); Mean Platelet Volume 11.8 fL (9.1-12.4); NEUTROPHILS ABSOLUTE AUTO 6.94 K/mm3 (1.96-9.15); NEUTROPHILS PERCENT AUTO 74 % (41-73); Platelet Count 190 K/mm3 (150-400); RDW Coefficient Variation 13.2 % (11.7-14.2); RDW Standard Deviation 40.8 fL (35.1-46.3); Red Blood Cell Count 4.48 M/mm3 (4.30-5.90); White Blood Cell Count 9.34 K/mm3 (4.00-11.30)
[2024-10-09 11:47] LABS: Albumin, Blood 3.9 g/dL (3.4-5.0); Albumin/Globulin Ratio 1.1 (0.8-1.8); Bilirubin, Total 0.5 mg/dL (0.1-1.0); Bun/Creatinine Ratio 28.5 (12.0-20.0); Calcium, Blood 8.8 mg/dL (8.5-10.1); Creatinine, Blood 1.51 mg/dL (0.60-1.20); Globulin, Blood 3.5 g/dL (2.2-4.0); Potassium, Blood 4.5 mmol/L (3.5-5.5); Total Protein, Blood 7.4 g/dL (6.4-8.2)
== END | disposition home or self-care (01) ==
LOC: LAB SHORT 11:28 → LAB 11:28
PROVIDERS: Physician Assistant
DX: R06.02 Shortness of breath (principal)
CPT/HCPCS: 80053; 83880; 85025

== ENCOUNTER 2024-12-08 13:49 | Emergency (ER) | payer MEDICARE, OTHER ==
[~2024-12-08] VITALS: Ht 175.3 cm; Wt 91.6 kg
[2024-12-08 14:55] LABS: BASOPHILS ABSOLUTE AUTO 0.03 K/mm3 (0.00-0.23); BASOPHILS PERCENT AUTO 0 % (0-2); EOSINOPHILS ABSOLUTE AUTO 0.33 K/mm3 (0.00-0.68); EOSINOPHILS PERCENT AUTO 4 % (0-6); Hematocrit 35.3 % (37.0-53.0); Hemoglobin 12.2 g/dL (13.5-17.5); IMMATURE GRAN ABSOLUTE AUTO 0.02 K/mm3 (0.00-0.10); IMMATURE GRAN PERCENT AUTO 0 % (0-1); LYMPHOCYTES ABSOLUTE AUTO 1.56 K/mm3 (0.84-5.20); LYMPHOCYTES PERCENT AUTO 17 % (21-46); MONOCYTES ABSOLUTE AUTO 0.66 K/mm3 (0.16-1.47); MONOCYTES PERCENT AUTO 7 % (4-13); Mean Corpuscular HGB 29.5 pg (26.0-34.0); Mean Corpuscular HGB Conc 34.6 g/dL (31.5-36.5); Mean Corpuscular Volume 86 fL (80-100); Mean Platelet Volume 11.1 fL (9.1-12.4); NEUTROPHILS ABSOLUTE AUTO 6.43 K/mm3 (1.96-9.15); NEUTROPHILS PERCENT AUTO 71 % (41-73); Platelet Count 176 K/mm3 (150-400); RDW Coefficient Variation 13.7 % (11.7-14.2); RDW Standard Deviation 42.7 fL (35.1-46.3); Red Blood Cell Count 4.13 M/mm3 (4.30-5.90); White Blood Cell Count 9.03 K/mm3 (4.00-11.30)
[2024-12-08 15:18] LABS: Albumin, Blood 3.4 g/dL (3.4-5.0); Albumin/Globulin Ratio 1.1 (0.8-1.8); Bilirubin, Total 0.6 mg/dL (0.1-1.0); Bun/Creatinine Ratio 25.5 (12.0-20.0); Creatinine, Blood 0.98 mg/dL (0.60-1.20); Globulin, Blood 3.1 g/dL (2.2-4.0); Potassium, Blood 4.3 mmol/L (3.5-5.5); Total Protein, Blood 6.5 g/dL (6.4-8.2)
[2024-12-08 16:45] VITALS: BP 122/93
== END 2024-12-08 16:50 | disposition home or self-care (01) ==
LOC: ER 13:49
PROVIDERS: Student in an Organized Health Care Education/Training Program
DX: R07.89 Other chest pain (principal)
CPT/HCPCS: 71045; 80053; 83880; 84484; 85025; 93005; 93010; 99285-25

== ENCOUNTER 2024-12-27 22:58 | Emergency (ER) | payer MEDICARE, OTHER ==
[~2024-12-27] VITALS: Ht 172.7 cm; Wt 102.1 kg
[2024-12-27 23:10] VITALS: BP 131/83
[2024-12-28] MEDS ORDERED: Lidocaine 4% 1 Patch TOP ONE (00:05)
[2024-12-28] MEDS ORDERED: Acetaminophen 325 MG TABLET PO ONE (00:10)
[2024-12-28] MEDS ORDERED: Gabapentin 300 MG Cap PO ONE (00:10)
[2024-12-28] MEDS ORDERED: CYCL10 PO (00:26)
[2024-12-28] MEDS ORDERED: LIDO700A20 TOP (00:26)
[2024-12-28] MEDS ORDERED: GABA300T24 PO (00:26)
[2024-12-28] MEDS ORDERED: GABA300 PO (00:27)
== END 2024-12-28 00:28 | disposition home or self-care (01) ==
LOC: ER 22:58
DX: M54.2 Cervicalgia (principal); Z59.89 Other problems related to housing and economic circumstances; I11.0 Hypertensive heart disease with heart failure; I50.9 Heart failure, unspecified; E11.9 Type 2 diabetes mellitus without complications; Z88.0 Allergy status to penicillin; Z79.899 Other long term (current) drug therapy; Z79.82 Long term (current) use of aspirin; Z79.891 Long term (current) use of opiate analgesic; Z79.83 Long term (current) use of bisphosphonates; Z79.1 Long term (current) use of non-steroidal anti-inflammatories (NSAID); Z79.811 Long term (current) use of aromatase inhibitors; Z79.2 Long term (current) use of antibiotics; Z79.51 Long term (current) use of inhaled steroids; Z79.84 Long term (current) use of oral hypoglycemic drugs; Z79.02 Long term (current) use of antithrombotics/antiplatelets; Z79.4 Long term (current) use of insulin
CPT/HCPCS: 99283; A9270